=== PATIENT | female | born 1995 | race Caucasian/White ===

== ENCOUNTER 2018-08-24 03:50 | Emergency (ER) | payer OTHER ==
--- NOTE | 2018-08-24 04:09 | EDPHY ---
H & P Stated Complaint: chest pain sob Time Seen by Provider: 08/24/18 03:58 HPI/ROS: Chief Complaint: Shortness of breath, chest pain HPI: 23-year-old woman with no significant medical problems woke this morning with pain in her left upper chest. Is described as sharp in nature. It lasted for a few minutes. She took a Zantac with no major relief. She went back to bed. She then continued to have tightness in her central chest and a feeling of shortness of breath. Pain is now resolved. She continues to feel shortness of breath. No leg pain or swelling. No cough. No fevers or chills. She does not smoke. She does take control. Does not have a family history of coronary artery disease or thromboembolic disease. No recent travel or periods of immobility. ROS: 10 systems were reviewed and were negative except those elements noted in the HPI. PMH: Denies Social History: No smoking, rare alcohol, no recreational drug use Family History: non-contributory Physical Exam: Gen: Awake, Alert, No Distress HEENT: Nose: no rhinorrhea Eyes: PERRLA, EOMI Mouth: Moist mucosa Neck: Supple, no JVD Chest: nontender, lungs clear to auscultation Heart: S1, S2 normal, no murmur Abd: Soft, non-tender, no guarding Back: no CVA tenderness, no midline tenderness Ext: no edema, non-tender Skin: no rash Neuro: CN II-XII intact, Sensation grossly intact, Strength 5/5 in bilateral upper and lower extremities - Personal History LMP (Females 10-55): 8-14 Days Ago Current Tetanus/Diphtheria Vaccine: Yes Current Tetanus Diphtheria and Acellular Pertussis (TDAP): Yes - Medical/Surgical History Hx Asthma: No Hx Chronic Respiratory Disease: No Hx Diabetes: No Hx Cardiac Disease: No Hx Renal Disease: No Hx Cirrhosis: No Hx Alcoholism: No Hx HIV/AIDS: No Hx Splenectomy or Spleen Trauma: No Other PMH: PMH: migraines. PSH: DENIES - Social History Smoking Status: Never smoked Constitutional: Initial Vital Signs Temperature (C) 36.6 C 08/24/18 03:53 Heart Rate 87 08/24/18 03:53 Respiratory Rate 18 08/24/18 03:53 Blood Pressure 137/97 H 08/24/18 03:53 O2 Sat (%) 98 08/24/18 03:53 O2 Delivery Mode Room Air Allergies/Adverse Reactions: No Known Allergies Allergy (Unverified 05/14/15 23:25) Home Medications: Medication Instructions Recorded Bcp 05/14/15 Medical Decision Making - Diagnostics EKG Interpretation: ECG time 4:09 a.m., sinus rhythm with a rate of 83, normal axis, normal intervals, no acute ST or T-wave changes. Impression: Normal ECG. Imaging Results: Chest x-ray is negative per my interpretation. Imaging: I viewed and interpreted images myself ED Course/Re-evaluation: 23-year-old with episodes of some chest pain followed by some shortness of breath. She has normal oxygen saturations. Not tachycardic. Chest x-ray is negative. ECG is normal. D-dimer is normal. No evidence acute coronary or pulmonary process. No pneumothorax. Will give her albuterol MDI, referral for outpatient follow-up. - Data Points Laboratory Results: Laboratory Results 08/24/18 04:20 08/24/18 08/24/18 08/24/18 04:20 04:20 04:20 WBC RBC Hgb Hct MCV MCH MCHC RDW Plt Count MPV Neut % (Auto) Lymph % (Auto) [place] % (Auto) Eos % (Auto) Baso % (Auto) Nucleat RBC Rel Count Absolute Neuts (auto) Absolute Lymphs (auto) Absolute Monos (auto) Absolute Eos (auto) Absolute Basos (auto) Absolute Nucleated RBC Immature Gran % Immature Gran # D-Dimer 0.46 ug/mLFEU ug/mLFEU (0.00-0.50) Sodium Pending Potassium Pending Chloride Pending Carbon Dioxide Pending Anion Gap Pending BUN Pending Creatinine Pending Estimated GFR Pending Glucose Pending Calcium Pending Beta HCG, Qual Pending 08/24/18 04:20 WBC 5.69 10^3/uL 10^3/uL (3.80-9.50) RBC 4.87 10^6/uL 10^6/uL (4.18-5.33) Hgb 13.1 g/dL g/dL (12.6-16.3) Hct 38.4 % % (38.0-47.0) MCV 78.9 fL L fL (81.5-99.8) MCH 26.9 pg L pg (27.9-34.1) MCHC 34.1 g/dL g/dL (32.4-36.7) RDW 14.2 % % (11.5-15.2) Plt Count 251 10^3/uL 10^3/uL (150-400) MPV 10.8 fL fL (8.7-11.7) Neut % (Auto) 50.1 % % (39.3-74.2) Lymph % (Auto) 39.5 % % (15.0-45.0) [place] % (Auto) 9.1 % % (4.5-13.0) Eos % (Auto) 0.7 % % (0.6-7.6) Baso % (Auto) 0.4 % % (0.3-1.7) Nucleat RBC Rel Count 0.0 % % (0.0-0.2) Absolute Neuts (auto) 2.85 10^3/uL 10^3/uL (1.70-6.50) Absolute Lymphs (auto) 2.25 10^3/uL 10^3/uL (1.00-3.00) Absolute Monos (auto) 0.52 10^3/uL 10^3/uL (0.30-0.80) Absolute Eos (auto) 0.04 10^3/uL 10^3/uL (0.03-0.40) Absolute Basos (auto) 0.02 10^3/uL 10^3/uL (0.02-0.10) Absolute Nucleated RBC 0.00 10^3/uL 10^3/uL (0-0.01) Immature Gran % 0.2 % % (0.0-1.1) Immature Gran # 0.01 10^3/uL 10^3/uL (0.00-0.10) D-Dimer Sodium Potassium Chloride Carbon Dioxide Anion Gap BUN Creatinine Estimated GFR Glucose Calcium Beta HCG, Qual Departure - Departure Disposition: Home, Routine, Self-Care Clinical Impression: Dyspnea Condition: Good Instructions: Dyspnea (ED), Albuterol (By breathing), Ondansetron (By mouth) Additional Instructions: You may use the albuterol inhaler, 1-2 puffs every 4 hr as needed for shortness of breath or cough. You may take the Zofran every 8 hr as needed for nausea vomiting. Follow up with primary care physician in 3-4 days if symptoms are not improving. Return to the emergency department for worsening shortness of breath, chest pain , fainting, or any other concerns. Referrals: Ericka Rivas MD [Medical Doctor] - As per Instructions
[2018-08-24 04:39] LABS: PLATELET COUNT 251 10^3/uL (150-400)
[2018-08-24] MEDS ORDERED: ALBUTEROL INH PREPACK MDI TAKEHOME ONE (04:59)
[2018-08-24] MEDS ORDERED: ONDANSETRON 4MG PREPACK#2 BTL TAKEHOME ONE (05:01)
[2018-08-24 05:06] VITALS: BP 130/81
--- NOTE | 2018-08-24 06:44 | CPEKG ---
Test Reason : OPEN Blood Pressure : / mmHG Vent. Rate : 083 BPM Atrial Rate : 083 BPM P-R Int : 149 ms QRS Dur : 081 ms QT Int : 367 ms P-R-T Axes : 050 088 036 degrees QTc Int : 432 ms Sinus rhythm Confirmed by Jacques Connelly ([id number]) on 08/24/2018 6:44:00 AM Referred By: Jacques Connelly Confirmed By:Jacques Connelly
== END 2018-08-24 05:23 | disposition home or self-care (01) ==
DX: R06.00 Dyspnea, unspecified (principal); R07.9 Chest pain, unspecified